=== PATIENT | male | born 1955 | race Caucasian/White ===

== ENCOUNTER 2017-11-21 13:50 | Emergency (ER) | payer OTHER ==
[~2017-11-21] VITALS: Ht 193 cm; Wt 109.0 kg
[2017-11-21 13:52] VITALS: BP 108/58; PULSE 85; RESP 18; TEMP 98.2; O2SAT 99
[2017-11-21 14:30] VITALS: BP 120/57; PULSE 65; RESP 21; O2SAT 95
[2017-11-21] MEDS ORDERED: METO25TA3 PO (14:30)
[2017-11-21] MEDS ORDERED: ASPI-516 CHEW (14:30)
[2017-11-21] MEDS ORDERED: TERA10CA3 PO (14:30)
[2017-11-21] MEDS ORDERED: DILT-46 PO (14:30)
[2017-11-21] MEDS ORDERED: ATOR10TA15 PO (14:30)
[2017-11-21] MEDS ORDERED: GLUC15009 PO (14:30)
[2017-11-21] MEDS ORDERED: OMEGCAP PO (14:30)
[2017-11-21] MEDS ORDERED: LOSA100T2 PO (14:30)
[2017-11-21] MEDS ORDERED: MULTTAB67 PO (14:30)
[2017-11-21 14:53] LABS: AUTOMATED NEUTROPHIL # 9.5 TH/MM3 (1.8-7.7); BASOPHIL # 0.1 TH/MM3 (0-0.2); BASOPHIL % 0.5 % (0.0-2.0); EOSINOPHIL % 0.1 % (0.0-4.0); HEMATOCRIT 40.1 % (39.0-51.0); HEMOGLOBIN 13.5 GM/DL (13.0-17.0); LYMPH % 6.1 % (9.0-44.0); LYMPHOCYTE # 0.7 TH/MM3 (1.0-4.8); MEAN CELL VOLUME 97.6 FL (80.0-100.0); MEAN CORPUSCULAR HEMOGLOBIN 32.9 PG (27.0-34.0); MEAN CORPUSCULAR HGB CONC 33.7 % (32.0-36.0); MEAN PLATELET VOLUME 8.3 FL (7.0-11.0); MONO % 5.3 % (0.0-8.0); MONOCYTE # 0.6 TH/MM3 (0-0.9); PLATELET COUNT 211 TH/MM3 (150-450); RED BLOOD COUNT 4.11 MIL/MM3 (4.50-5.90); RED CELL DISTRIBUTION WIDTH 14.4 % (11.6-17.2); WHITE BLOOD COUNT 10.8 TH/MM3 (4.0-11.0)
[2017-11-21] MEDS ORDERED: SODIUM CHLOR 0.9% 1000 ML INJ 1,000 ML IV ONE ×2 (15:00→15:30)
[2017-11-21 15:16] LABS: ALBUMIN 4.1 GM/DL (3.4-5.0); ALKALINE PHOSPHATASE 71 U/L (45-117); ALT (GPT) 49 U/L (12-78); AST (GOT) 31 U/L (15-37); BICARBONATE 21.8 MEQ/L (21.0-32.0); BLOOD UREA NITROGEN 27 MG/DL (7-18); CALCIUM 8.7 MG/DL (8.5-10.1); CHLORIDE 94 MEQ/L (98-107); CREATININE 1.66 MG/DL (0.60-1.30); GLOMERULAR FILTRATION RATE 42 ML/MIN (>89); SODIUM (NA) 130 MEQ/L (136-145); TOTAL BILIRUBIN ADULT 1.2 MG/DL (0.2-1.0); TOTAL PROTEIN 7.3 GM/DL (6.4-8.2)
[2017-11-21 15:24] LABS: GLUCOSE,RANDOM 664 MG/DL (74-106)
--- NOTE | 2017-11-21 15:28 | PD ---
HPI Chief Complaint: Diabetic Time Seen by Provider: 14:47 Travel History International Travel<30 days: No Contact w/Intl Traveler<30days: No Traveled to known affect area: No History of Present Illness HPI Patient is a 62-year-old male presenting to emergency for evaluation of elevated blood sugar readings. Patient is a type I diabetic, he has an insulin pump. He states that last night his blood glucose reading was high, this morning he checked it was 381, he gave himself 10 units of regular insulin outside of the insulin pump and his blood sugar was then noted to be 440. Patient checked it again a few hours later and it was reading high which would be greater than 600. He reports feeling fatigued however he has no other complaints. He denies any nausea, vomiting, abdominal pain, dysuria, diarrhea, chest pain or shortness of breath. Patient initially thought that the insulin pump may not be working well or there may be air in the line. He checked the pump and it appeared to be working just fine. Symptom onset was fairly sudden, there are no alleviating factors. Patient denies any pain at this time. PFSH Past Medical History Heart Rhythm Problems: Yes (V-TACH) High Cholesterol: Yes Diabetes: Yes (type 1) Hypertension: Yes Tetanus Vaccination: Unknown ?: Not Past Surgical History Other Surgery: Yes (VASECTOMY) Social History Alcohol Use: No (DAILY) Tobacco Use: No Substance Use: No Allergies-Medications (Allergen,Severity, Reaction): Coded Allergies: No Known Allergies (Unverified , 11/21/17) Reported Meds & Prescriptions Reported Meds & Active Scripts Active Reported Glucosamine 1,500 Mg Tab 1,500 Mg PO DAILY Cutler-3 Fish Oil/Vitamin (Fish Oil-Cholecalciferol) 1,000-1,000 Mg Cap 1 Cap PO DAILY Multiple Vitamin 1 Tab 1 Tab PO DAILY Diltiazem ER 24 HR 360 Mg Caper 360 Mg PO DAILY Atorvastatin (Atorvastatin Calcium) 10 Mg Tab 10 Mg PO HS Losartan-Hydrochlorothiazide 100-25 Mg Tab 1 Tab PO DAILY Metoprolol Tartrate 25 Mg Tab 25 Mg PO BID Aspirin 81 Mg Chew 81 Mg CHEW DAILY Terazosin (Terazosin HCl) 10 Mg Cap 10 Mg PO HS Review of Systems Except as stated in HPI: all other systems reviewed are Neg Physical Exam Narrative GENERAL: Well developed, well nourished, alert male. Presenting in no acute distress. SKIN: Warm and dry. HEAD: Atraumatic. Normocephalic. EYES: Pupils equal and round. No scleral icterus. No injection or drainage. ENT: No nasal bleeding or discharge. Mucous membranes pink and moist. NECK: Trachea midline. No JVD. CARDIOVASCULAR: Regular rate and rhythm. RESPIRATORY: No accessory muscle use. Clear to auscultation. Breath sounds equal bilaterally. GASTROINTESTINAL: Abdomen soft, non-tender, nondistended. Hepatic and splenic margins not palpable. MUSCULOSKELETAL: Extremities without clubbing, cyanosis, or edema. No obvious deformities. NEUROLOGICAL: Awake and alert. No obvious cranial nerve deficits. Motor grossly within normal limits. Five out of 5 muscle strength in the arms and legs. Normal speech. PSYCHIATRIC: Appropriate mood and affect; insight and judgment normal. Data Data Last Documented VS Vital Signs Date Time Temp Pulse Resp B/P (MAP) Pulse Ox O2 Delivery O2 Flow Rate FiO2 11/21/17 14:30 65 21 120/57 (78) 95 Room Air 11/21/17 13:52 98.2 Orders Orders Complete Blood Count With Diff (11/21/17 14:35) Blood Glucose (11/21/17 14:35) Comprehensive Metabolic Panel (11/21/17 14:35) Iv Access Insert/Monitor (11/21/17 14:35) Urinalysis - C+S If Indicated (11/21/17 14:54) Sodium Chlor 0.9% 1000 Ml Inj (Ns 1000 M (11/21/17 15:00) Insulin Human Regular Inj (Novolin R Inj (11/21/17 15:30) Sodium Chlor 0.9% 1000 Ml Inj (Ns 1000 M (11/21/17 15:30) Blood Glucose (11/21/17 16:12) Insulin Human Regular Inj (Novolin R Inj (11/21/17 17:00) Basic Metabolic Panel (Bmp) (11/21/17 16:47) Ed Discharge Order (11/21/17 18:13) Labs Laboratory Tests Test 11/21/17 14:35 11/21/17 15:01 11/21/17 17:05 White Blood Count 10.8 TH/MM3 Red Blood Count 4.11 MIL/MM3 Hemoglobin 13.5 GM/DL Hematocrit 40.1 % Mean Corpuscular Volume 97.6 FL Mean Corpuscular Hemoglobin 32.9 PG Mean Corpuscular Hemoglobin Concent 33.7 % Red Cell Distribution Width 14.4 % Platelet Count 211 TH/MM3 Mean Platelet Volume 8.3 FL Neutrophils (%) (Auto) 88.0 % Lymphocytes (%) (Auto) 6.1 % Monocytes (%) (Auto) 5.3 % Eosinophils (%) (Auto) 0.1 % Basophils (%) (Auto) 0.5 % Neutrophils # (Auto) 9.5 TH/MM3 Lymphocytes # (Auto) 0.7 TH/MM3 Monocytes # (Auto) 0.6 TH/MM3 Eosinophils # (Auto) 0.0 TH/MM3 Basophils # (Auto) 0.1 TH/MM3 CBC Comment DIFF FINAL Differential Comment Blood Urea Nitrogen 27 MG/DL 24 MG/DL Creatinine 1.66 MG/DL 1.51 MG/DL Random Glucose 664 MG/DL 383 MG/DL Total Protein 7.3 GM/DL Albumin 4.1 GM/DL Calcium Level 8.7 MG/DL 8.3 MG/DL Alkaline Phosphatase 71 U/L Aspartate Amino Transf (AST/SGOT) 31 U/L Alanine Aminotransferase (ALT/SGPT) 49 U/L Total Bilirubin 1.2 MG/DL Sodium Level 130 MEQ/L 137 MEQ/L Potassium Level 4.9 MEQ/L 3.8 MEQ/L Chloride Level 94 MEQ/L 103 MEQ/L Carbon Dioxide Level 21.8 MEQ/L 24.8 MEQ/L Anion Gap 14 MEQ/L 9 MEQ/L Estimat Glomerular Filtration Rate 42 ML/MIN 47 ML/MIN Urine Color YELLOW Urine Turbidity CLEAR Urine pH 6.5 Urine Specific [place] 1.024 Urine Protein NEG mg/dL Urine Glucose (UA) 1000 mg/dL Urine Ketones 10 mg/dL Urine Occult Blood NEG Urine Nitrite NEG Urine Bilirubin NEG Urine Urobilinogen LESS THAN 2.0 MG/DL Urine Leukocyte Esterase NEG Urine RBC LESS THAN 1 /hpf Urine WBC 4 /hpf Urine Hyaline Casts 1 /lpf Microscopic Urinalysis Comment CULT NOT INDICATED MDM Medical Decision Making Medical Screen Exam Complete: Yes Emergency Medical Condition: Yes Interpretation(s) Vital Signs Date Time Temp Pulse Resp B/P (MAP) Pulse Ox O2 Delivery O2 Flow Rate FiO2 11/21/17 14:30 65 21 120/57 (78) 95 Room Air 11/21/17 13:52 98.2 85 18 108/58 (75) 99 Differential Diagnosis Hyperglycemia versus urinary tract infection versus DKA versus insulin pump malfunction versus other Narrative Course Patient is a 62-year-old male that presented to the emergency department for evaluation of elevated blood sugar readings. Patient is a type I diabetic with insulin pump. Patient states that he contacted [employer] yesterday and the pump was analyzed and is working normally. He denies any physical complaints, fevers, cold or flu symptoms, pain. Labs ordered and pending. Glucose resulted at 664, patient was given 12 units IV insulin. Additionally patient's BUN and creatinine are elevated at 27/1.66, sodium 1:30. He received 2 L of IV fluids. Additional 6 units of regular insulin IV ordered. Repeated BMP shows a sodium of 137, BUN/creatinine 24/1.51, blood glucose 383, this was prior to the 6 units, will reassess blood glucose now. Repeated blood glucose is 289. Patient will be discharged home, discussed findings and plan of care with my attending physician who is in agreement. Patient is advised to adjust insulin on insulin pump as needed for hyperglycemia per previous orders. He was advised to follow-up with primary doctor tomorrow. He was reassured at this time that there were no acute findings to explain the elevated blood sugar, he was encouraged to continue to follow up with [employer]. Patient is stable for discharge. Diagnosis Primary Impression: Hyperglycemia due to type 1 diabetes mellitus Additional Impressions: Acute renal insufficiency Hyponatremia Referrals: Primary Care Physician 1 day Patient Instructions: Acute Kidney Injury (DC), Diabetic Hyperglycemia (ED), General Instructions Additional Instructions: Follow-up with your primary doctor Adjust medication and insulin pump accordingly Return to emergency department for any new or worsening symptoms Avoid concentrated sweets Maintain adequate fluid intake Med/Other Pt SpecificInfo: No Change to Meds Disposition: 01 DISCHARGE HOME Condition: Stable Geovany,Meetacaden GONZALEZ Nov 21, 2017 15:28
[2017-11-21] MEDS ORDERED: INSULIN HUMAN REGULAR 1,000 UNITS/10 ML VIAL IV PUSH ONE ×2 (15:30→17:00)
[2017-11-21 15:38] LABS: BILIRUBIN, URINE NEG (NEG); BLOOD, URINE NEG (NEG); GLUCOSE,URINE 1000 mg/dL (NEG); HYALINE CAST, URINE 1 /lpf (RARE); KETONE, URINE 10 mg/dL (NEG); NITRITE,URINE NEG (NEG); PH, URINE 6.5 (5.0-8.5); URINE COLOR YELLOW (YELLW/STRAW); URINE LEUKOCYTE ESTERASE NEG (NEG)
[2017-11-21 17:46] LABS: BICARBONATE 24.8 MEQ/L (21.0-32.0); CALCIUM 8.3 MG/DL (8.5-10.1); CREATININE 1.51 MG/DL (0.60-1.30)
== END 2017-11-21 19:00 | disposition home or self-care (01) ==
LOC: NEPC 13:50
DX: E10.65 Type 1 diabetes mellitus with hyperglycemia (principal); N28.9 Disorder of kidney and ureter, unspecified; E87.1 Hypo-osmolality and hyponatremia; E78.00 Pure hypercholesterolemia, unspecified; I10 Essential (primary) hypertension; Z79.4 Long term (current) use of insulin
CPT/HCPCS: 80053; 81001; 85025; 96361; 96374; 96375; 99284; J1815; J7030; 80048